=== PATIENT | female | born 1960 | race Caucasian/White ===

== ENCOUNTER → 2019-10-14 | Outpatient (CLI) | payer OTHER ==
--- NOTE | 2019-10-17 13:54 | MM ---
Reason for exam: screening (asymptomatic). Last mammogram was performed 1 year and 3 months ago. History: Patient is postmenopausal. Physical Findings: A clinical breast exam by your physician is recommended on an annual basis and results should be correlated with mammographic findings. MG 3D Screening Mammo W/Cad Bilateral CC and MLO view(s) were taken. Prior study comparison: July 17, 2018, mammogram. May 01, 2017, mammogram. July 29, 2012, bilateral digital screening mammo w/CAD. June 01, 2011, bilateral digital screening mammo w/CAD. There are scattered fibroglandular densities. There is no discrete abnormality. No significant changes when compared with prior studies. ASSESSMENT: Negative, BI-RAD 1 RECOMMENDATION: Routine screening mammogram of both breasts in 1 year.
== END | disposition home or self-care (01) ==
LOC: RADMAMWWP 14:04
PROVIDERS: ATTEND Obstetrics & Gynecology
DX: Z12.31 Encounter for screening mammogram for malignant neoplasm of breast (principal)
CPT/HCPCS: 77063; 77067

== ENCOUNTER → 2020-10-20 | Outpatient (CLI) | payer OTHER ==
--- NOTE | 2020-10-20 12:05 | BD ---
EXAMINATION TYPE: Axial Bone Density DATE OF EXAM: 10/20/2020 COMPARISON: NONE CLINICAL HISTORY: Height: 5FT 1 IN Weight: 166 FRAX RISK QUESTIONS: Alcohol (3 or more units per day): NO Family History (Parent hip fracture): YES Glucocorticoids (More than 3mos): NO (Ex: prednisone, prednisolone, methylprednisolone, dexamethasone, and hydrocortisone). History of Fracture in Adulthood: YES Secondary Osteoporosis: 1. Type 1 Diabetes: NO 2. Hyperthyroidism: NO 3. Menopause before 45: NO 4. Malnutrition: NO 5. Chronic liver disease: NO Rheumatoid Arthritis: NO Current Tobacco Use: YES RISK FACTORS HISTORY OF: Family History of Osteoporosis: YES Active: YES Diet low in dairy products/other sources of calcium: NO Postmenopausal woman: ABLATION SYMPTOMS JUST THIS LAST YEAR Take estrogen and/or progesterone medications: NONE Lost more than 2 inches in height since high school: NO MEDICATIONS: Additional Medications: XANAX, SIMVASTATIN,BABY ASPIRIN Additional History: EXAM MEASUREMENTS: Bone mineral densitometry was performed using the [employer]. Bone mineral density as measured about the Lumbar spine is: ----- L1-L4(G/cm2): 1.005 T Score Values are as follows: ----- L2: -1.5 ----- L3: -1.6 ----- L4: -1.2 ----- L1-L4: -1.5 Bone mineral density has: DECREASED -10.9 % since study of: 2010 Bone mineral density about the R hip (g/cm2): 0.779 Bone mineral density about the L hip (g/cm2): 0.818 T Score values are as follows: -----R Neck: -1.9 -----L Neck: -1.6 -----R Total: -1.6 -----L Total: -1.1 Bone mineral density has: DECREASED -6.8 % since study of: 2010 IMPRESSION: Osteopenia (T Score between -2.5 and -1). There is slightly increased risk of fracture and the patient may be considered for treatment. Re-Screen 2-5 years. NOTE: T-SCORE=SD OF THE YOUNG ADULT MEAN.
--- NOTE | 2020-10-25 09:20 | MM ---
Reason for exam: screening (asymptomatic). Last mammogram was performed 1 year ago. History: Patient is postmenopausal. Physical Findings: A clinical breast exam by your physician is recommended on an annual basis and results should be correlated with mammographic findings. MG 3D Screening Mammo W/Cad Bilateral CC and MLO view(s) were taken. Prior study comparison: October 14, 2019, bilateral MG 3d screening mammo w/cad. July 17, 2018, mammogram. There are scattered fibroglandular densities. There is no discrete abnormality. ASSESSMENT: Negative, BI-RAD 1 RECOMMENDATION: Routine screening mammogram of both breasts in 1 year.
== END | disposition home or self-care (01) ==
LOC: RADMAMWWP 10:13
PROVIDERS: ATTEND Obstetrics & Gynecology
DX: Z12.31 Encounter for screening mammogram for malignant neoplasm of breast (principal); M85.80 Other specified disorders of bone density and structure, unspecified site
CPT/HCPCS: 77063; 77067; 77080

== ENCOUNTER → 2021-03-28 | Outpatient (CLI) | payer OTHER ==
--- NOTE | 2021-03-28 18:39 | ECHOF ---
Referral Reason:R00.2 Palpitations MEASUREMENTS -------- HEIGHT: 154.9 cm WEIGHT: 72.6 kg BP: IVSd: 0.8 cm (0.6 - 1.1) LVIDd: 3.9 cm (3.9 - 5.3) LVPWd: 1.0 cm (0.6 - 1.1) EDV(Teich): 66 ml IVSs: 1.7 cm LVIDs: 1.8 cm LVPWs: 1.4 cm %IVS Thck: 112 % ESV(Teich): 9 ml EF(Teich): 86 % %FS: 55 % SV(Teich): 57 ml RVIDd: 1.9 cm (< 3.3) IVC: 17.37 mm LALs A4C: 4.8 cm LAAs A4C: 13.2 cm LAESV A-L A4C: 31 ml LAESV MOD A4C: 29 ml LALs A2C: 5.1 cm LAAs A2C: 13.4 cm LAESV A-L A2C: 30 ml LAESV MOD A2C: 29 ml LAESV(A-L): 31 ml LAESV Index (A-L): 18.08 ml/m Ao Diam: 2.9 cm (2.0 - 3.7) LA Diam: 2.2 cm (2.7 - 3.8) AV Cusp: 1.9 cm (1.5 - 2.6) EPSS: 0.3 cm MV E Dustin: 0.96 m/s MV DecT: 246 ms MV Dec Will: 3.9 m/s MV A Dustin: 0.90 m/s MV E/A Ratio: 1.07 MV PHT: 71 ms MR Vmax: 3.50 m/s MR maxP.58 mmHg AV Vmax: 1.23 m/s AV maxP.04 mmHg TR Vmax: 1.56 m/s TR maxP.69 mmHg RAP: 5.00 mmHg RVSP: 14.69 mmHg MV EF SLOPE: 79.93 mm/s (70 - 150) MV EXCURSION: 10.41 mm (> 18.000) FINDINGS -------- This was a technically good study. The left ventricular size is normal. Left ventricular wall thickness is normal. Overall left vent ricular systolic function is normal with, an EF between 55 - 60 %. The right ventricle is normal in size. The left atrial size is normal. Normal LA size by volume 22+/-6 ml/m2. The right atrial size is normal. The aortic valve is trileaflet and appears structurally normal. The mitral valve is normal. Mild mitral regurgitation is present. The tricuspid valve appears structurally normal. Mild tricuspid regurgitation present. Right vent ricular systolic pressure is normal at < 35 mmHg. There is no pulmonic regurgitation present. The aortic root size is normal. Normal inferior vena cava with normal inspiratory collapse consistent with estimated right atrial pre ssure of 5 mmHg. There is no pericardial effusion. CONCLUSIONS -------- 1. The left ventricular size is normal. 2. Left ventricular wall thickness is normal. 3. Overall left ventricular systolic function is normal with, an EF between 55 - 60 %. 4. Mild mitral regurgitation is present. 5. Mild tricuspid regurgitation present. 6. There is no pericardial effusion. FILM LABORATORY TECHNICIAN: Antonieta Rowley RDCS
== END | disposition home or self-care (01) ==
LOC: RADECHMAIN 12:59
PROVIDERS: ATTEND Internal Medicine
DX: I08.8 Other rheumatic multiple valve diseases (principal)
CPT/HCPCS: 93306

== ENCOUNTER → 2021-08-16 | Outpatient (CLI) | payer OTHER ==
--- NOTE | 2021-08-16 12:35 | XR ---
EXAMINATION TYPE: XR chest 2V DATE OF EXAM: 08/16/2021 COMPARISON: NONE TECHNIQUE: PA and lateral views submitted. HISTORY: Post covid. Heart palpitations FINDINGS: The lungs are clear and there is no pneumothorax, pleural effusion, or focal pneumonia. Mildly coar sened central interstitium. Biapical pleural thickening. Heart size normal. Mild hyperinflation corre late for asthma or COPD. Degenerative changes of the spine. Surgical clips in the abdomen. IMPRESSION: 1. Correlate for bronchitis or mild interstitial pneumonitis.
--- NOTE | 2021-08-16 12:36 | XR ---
EXAM TYPE: LUMBAR SPINE X RAY SERIES COMPARISON: NONE HISTORY: Pain TECHNIQUE: 4 views are submitted. FINDINGS: Alignment is anatomic. The pedicles are intact. The transverse processes are intact. There is grad e 1 anterolisthesis L5 on S1. There is degenerative disc disease L3-4, L4-5 and severe changes L5-S1. Severe facet arthropathy L4-5 and L5-S1. IMPRESSION: 1. Multilevel degenerative disc disease with severe facet arthropathy lower lumbar spine with resulti ng in grade 1 anterolisthesis L5 on S1. Follow-up MRI recommended.
== END | disposition home or self-care (01) ==
LOC: RADXRMAIN 11:47
PROVIDERS: ATTEND Internal Medicine
DX: J98.4 Other disorders of lung (principal); Z86.16 Personal history of COVID-19
CPT/HCPCS: 71046; 72100

== ENCOUNTER → 2021-09-09 | Outpatient (CLI) | payer OTHER ==
--- NOTE | 2021-09-09 11:39 | MR ---
EXAMINATION TYPE: MR cspine/lspine wo con DATE OF EXAM: 09/09/2021 COMPARISON: The lumbar spine 08/16/2021 HISTORY: Neck and low back pain TECHNIQUE: Multiplanar, multisequence imaging of the cervical and lumbar spine is performed without I V contrast. FINDINGS: Cervical spine mri: There is some slight reversal the normal cervical lordosis which can be seen in m uscle spasm. Cervical vertebral bodies show preserved height, minimal anterolisthesis grade 1 C3-4, r etrolisthesis grade 1 C5-6 and C6-7. Loss of disc height and signal is present C4-5, C5-6 and C6-7, t here is associated spondylosis, endplate discogenic marrow signal change. C2-3: There is some right-sided foraminal encroachment due to uncovertebral joint hypertrophy, no dis c herniation or significant spinal stenosis C3-4: Minimal posterior disc bulge causes slight anterior mass effect on the thecal sac. Foraminal en croachment due to uncovertebral joint hypertrophy is greater on the right causing some foraminal encr oachment. No significant spinal stenosis. C4-5: Posterior extension endplate disc complex causes anterior mass effect on the thecal sac, only m ild spinal stenosis. There is bilateral foraminal encroachment due to uncovertebral joint hypertrophy , there may be some associated facet arthropathy. C5-6: Posterior disc bulge causes slight anterior mass effect on the thecal sac. There is bilateral f oraminal encroachment left greater than right. Only mild spinal stenosis. There is some facet arthrop athy change present. C6-7: Posterior extension endplate disc complex causes minimal anterior mass effect on the thecal sac . No significant spinal stenosis or foraminal encroachment. C7-T1: Within normal limits. Cervical cord signal is maintained. IMPRESSION: Degenerative disc disease, multilevel foraminal encroachment, there is some associated fa cet arthropathy. Lumbar MRI: There is anterolisthesis grade 1 L5-S1, bilateral spondylolysis at L5 is noted. Lumbar vertebral bodi es show preserved height and alignment, there is multilevel spondylosis with endplate discogenic kathryn ow signal change, loss of disc height signal is greatest at L5-S1 with associated vacuum phenomenon, no significant spinal stenosis. The conus medullaris is normal in position and signal. The bone kathryn ow signal intensity is within normal limits. Probable cortical cyst associated with the right kidney partially visualized measuring 2.6 cm, possible parapelvic cyst on the left or extrarenal pelvis note d L5-S1 shows bilateral foraminal encroachment contributed by the listhesis, there is no evident disc h erniation. Facet arthropathy changes present. L4-5: Posterior disc bulge causes slight anterior mass effect on the thecal sac. Facet arthropathy wi th hypertrophy ligamentum flavum causes some posterior lateral mass effect on the thecal sac. There m ay be some encroachment on the lateral recess greater on the left. No significant foraminal encroachm ent. L3-4: Minimal posterior disc bulge causes only slight anterior mass effect on the thecal sac. No sign ificant foraminal encroachment. L2-3: There is some facet arthropathy with hypertrophy ligamentum flavum causing some posterior later al mass effect on the thecal sac. No significant foraminal encroachment. Minimal disc bulge causes sl ight anterior mass effect on the thecal sac. L1-2: Unremarkable IMPRESSION: Degenerative disc disease, spondylolysis at L5-S1 with spondylolisthesis, multilevel face t arthropathy.
== END | disposition home or self-care (01) ==
LOC: RADMRIMAIN 09:27
PROVIDERS: ATTEND Internal Medicine
DX: M51.36 Other intervertebral disc degeneration, lumbar region (principal); M50.322 Other cervical disc degeneration at C5-C6 level; M47.812 Spondylosis without myelopathy or radiculopathy, cervical region; M43.07 Spondylolysis, lumbosacral region
CPT/HCPCS: 72141; 72148

== ENCOUNTER → 2021-10-21 | Outpatient (CLI) | payer BC ==
--- NOTE | 2021-10-25 09:14 | MM ---
Reason for exam: screening (asymptomatic). Last mammogram was performed 1 year ago. History: Patient is postmenopausal. Physical Findings: A clinical breast exam by your physician is recommended on an annual basis and results should be correlated with mammographic findings. MG 3D Screening Mammo W/Cad Bilateral CC and MLO view(s) were taken. Prior study comparison: October 20, 2020, bilateral MG 3d screening mammo w/cad. October 14, 2019, bilateral MG 3d screening mammo w/cad. There are scattered fibroglandular densities. No significant changes when compared with prior studies. ASSESSMENT: Negative, BI-RAD 1 RECOMMENDATION: Routine screening mammogram of both breasts in 1 year.
== END | disposition home or self-care (01) ==
LOC: RADMAMWWP 15:32
PROVIDERS: ATTEND Obstetrics & Gynecology
DX: Z12.31 Encounter for screening mammogram for malignant neoplasm of breast (principal); Z78.0 Asymptomatic menopausal state
CPT/HCPCS: 77063; 77067

== ENCOUNTER → 2025-02-03 | Outpatient (CLI) | payer BC ==
--- NOTE | 2025-02-03 20:42 | FL ---
EXAMINATION TYPE: FL barium swallow DATE OF EXAM: 02/03/2025 3:28 PM COMPARISON: . Chest radiograph from 08/16/2021 CLINICAL INDICATION:Female, 64 years old with history of K44.9 DIAPHRAGMATIC HERNIA WITHOUT OBSTRUCTI ON OR; [facility], TECHNIQUE: The procedure was explained and patient history elicited. All patient questions were ans wered prior to start of procedure. Multiple spot fluoroscopic images of the esophagus were obtained a fter the oral ingestion of effervescent crystals and liquid barium as the contrast agent. DAP: NOT REPORTED [id number] FINDINGS: The esophagus demonstrates normal primary and secondary peristalsis. Tertiary contractions are seen w ith delayed emptying of the esophageal contents. Small hiatal hernia present. The esophageal mucosa i s smooth without evidence of focal stricture, ulceration, or abnormal outpouching. There was gastroes ophageal reflux disease identified within the patient was transitioned from upright to prone. IMPRESSION: 1. Esophageal dysmotility. 2. Small hiatal hernia. 3. Gastroesophageal reflux. [facility], , 02/03/2025 8:39 PM
== END | disposition home or self-care (01) ==
LOC: RADFLMAIN 14:40
PROVIDERS: ATTEND Family Medicine
DX: K44.9 Diaphragmatic hernia without obstruction or gangrene (principal); K22.4 Dyskinesia of esophagus; K21.9 Gastro-esophageal reflux disease without esophagitis
CPT/HCPCS: 74220

== ENCOUNTER 2025-02-26 09:48 | Day surgery (SDC) | payer BC ==
[2025-02-25 11:53] VITALS: BMI 29.2
--- NOTE | 2025-02-26 07:38 | P.GSHP ---
History of Present Illness H&P Date: 02/26/25 CHIEF COMPLAINT: GERD and dysphagia HISTORY OF PRESENT ILLNESS: The patient is a 64-year-old female who presents reports gastroesophageal reflux disease and dysphagia. Upper endoscopy was offered for further evaluation and management. PAST MEDICAL HISTORY: Please see list. PAST SURGICAL HISTORY: Please see list. MEDICATIONS: Please see list. ALLERGIES: Please see list. SOCIAL HISTORY: No illicit drug use FAMILY HISTORY: No reports of Crohn disease or ulcerative colitis. REVIEW OF ORGAN SYSTEMS: CONSTITUTIONAL: No reports of fevers or chills. GI: Denies any blood in stools or constipation. PHYSICAL EXAM: VITAL SIGNS: Stable GENERAL: Well-developed and pleasant in no acute distress. HEENT: No scleral icterus. Extraocular movements grossly intact. Moist buccal mucosa. NECK: Supple without lymphadenopathy. CHEST: Unlabored respirations. Equal bilateral excursions. CARDIOVASCULAR: Regular rate and rhythm. Distal 2+ pulses. ABDOMEN: Soft, nondistended. MUSCULOSKELETAL: No clubbing, cyanosis, or edema. ASSESSMENT: 1. Gastroesophageal reflux disease 2. Dysphagia PLAN: 1. Recommend proceeding with an upper endoscopy Past Medical History Past Medical History: CVA/TIA, Hyperlipidemia, Osteoarthritis (OA) Additional Past Medical History / Comment(s): SEASONAL ALLERGIES. POLYARTHRITIS. OSTEOPOROSIS History of Any Multi-Drug Resistant Organisms: None Reported Past Surgical History: Cholecystectomy, Hernia Repair Additional Past Surgical History / Comment(s): BILAT FEET BRADSHAW NEUROMA SX. COLONOSCOPY. BILAT EYELID LIFT Past Anesthesia/Blood Transfusion Reactions: No Reported Reaction Smoking Status: Current every day smoker - Past Family History Father Family Medical History: Deep Vein Thrombosis (DVT) Mother Family Medical History: Cancer Additional Family Medical History / Comment(s): SKIN Medications and Allergies Home Medications Medication Instructions Recorded Confirmed Type ALPRAZolam [Xanax] 0.25 mg PO DAILY PRN 02/25/25 02/25/25 History Aspirin EC [Ecotrin Low Dose] 81 mg PO HS 02/25/25 02/25/25 History DULoxetine HCL [Cymbalta] 60 mg PO DAILY 02/25/25 02/25/25 History Fluticasone Nasal [place] [Flonase 2 spray EA NOSTRIL DAILY PRN 02/25/25 02/25/25 History Nasal [place]] Pantoprazole [Protonix] 40 mg PO BID 02/25/25 02/25/25 History Simvastatin 10 mg PO HS 02/25/25 02/25/25 History Allergies Allergy/AdvReac Type Severity Reaction Status Date / Time Penicillins Allergy Rash/Hives Verified 02/25/25 11:45
[2025-02-26 10:19] VITALS: RESP 16; TEMP 96.8
[2025-02-26] MEDS: IV FLUID CONTINUATION 1,000 ML IV ONE (10:28)
[2025-02-26] MEDS: LACTATED RINGERS 1,000 ML IV SCH (10:29)
[2025-02-26] MEDS ORDERED: LIDOCAINE 1% INJ 10MG/ML (20 ML MDV) ONE (10:54)
[2025-02-26] MEDS ORDERED: PROPOFOL 10 MG/ML 20 ML VIAL IV ONE (10:54)
[2025-02-26 11:43] VITALS: BP 143/87; PULSE 67
--- NOTE | 2025-02-26 14:43 | P.PCN ---
Date of Procedure: 02/26/25 Description of Procedure: PREOPERATIVE DIAGNOSIS: Gastroesophageal reflux disease Esophageal ulcers Dysphagia Tobacco abuse disorder POSTOPERATIVE DIAGNOSIS: Upper esophageal stenosis Diaphragmatic hiatal hernia Gastroesophageal reflux disease OPERATION: Esophagogastroduodenoscopy with rigid dilator over the guidewire 57 Fr with dilation Esophagogastroduodenoscopy with cold forceps biopsies stomach/antrum, esophagus, duodenum SURGEON: Angela Munoz MD ANESTHESIA: MAC. INDICATIONS: The patient is a 64-year-old female who presents with a history of gastroesophageal reflux disease including dysphagia. Benefits and risks of the procedure were described. Informed consent was obtained. DESCRIPTION: The patient was brought into the endoscopy suite and laid in the left lateral decubitus position. After a timeout was confirmed, the procedure was initiated. An Olympus gastroscope was passed into the posterior oropharynx where an upper esophageal stenosis was identified. The scope was passed down to the distal esophagus. To address the upper esophageal stenosis, rigid dilator over guide wire was selected. Next using an [place] rigid dilator, a guidewire was placed through the gastroscope. Next the scope was withdrawn. A 57-Romanian rigid [place] dilator was passed carefully along the posterior oropharynx to 45 cm and left in place for 2-3 minutes stretch. The dilator was withdrawn including the guidewire. The scope was reentered along the posterior oropharynx with no findings of full- thickness tear of the upper esophageal sphincter. Additional findings below. Within the stomach, gastritis was identified along the body of the stomach with cold forceps biopsies obtained. The lower esophageal valve was evaluated with Hill grade 2 lower esophageal valve. LA grade B erosive esophagitis was identified. No full-thickness injury was encountered. The GI tract was desufflated. The patient tolerated the procedure well. FINDINGS: Upper esophageal stenosis dilated 57-Romanian rigid dilator Diaphragmatic hiatus at 30 cm from the incisors Squamocolumnar junction 35 cm from the incisors. Diaphragmatic hiatal hernia, 5 cm Acute gastritis identified with biopsies obtained Duodenum with duodenitis. Biopsies obtained LA grade B erosive esophagitis Hill grade 4 lower esophageal valve. RECOMMENDATIONS: Tobacco cessation counseling described Continue pantoprazole 40 mg daily Plan - Discharge Summary Discharge Rx Participant: No New Discharge Prescriptions: Continue Fluticasone Nasal [place] [Flonase Nasal [place]] 2 spray EA NOSTRIL DAILY PRN PRN Reason: ALLERGIES Pantoprazole [Protonix] 40 mg PO BID Aspirin EC [Ecotrin Low Dose] 81 mg PO HS ALPRAZolam [Xanax] 0.25 mg PO DAILY PRN PRN Reason: Anxiety Simvastatin 10 mg PO HS DULoxetine HCL [Cymbalta] 60 mg PO DAILY Discharge Medication List ALPRAZolam [Xanax] 0.25 mg PO DAILY PRN 02/25/25 [History] Aspirin EC [Ecotrin Low Dose] 81 mg PO HS 02/25/25 [History] DULoxetine HCL [Cymbalta] 60 mg PO DAILY 02/25/25 [History] Fluticasone Nasal [place] [Flonase Nasal [place]] 2 spray EA NOSTRIL DAILY PRN 02/25/25 [History] Pantoprazole [Protonix] 40 mg PO BID 02/25/25 [History] Simvastatin 10 mg PO HS 02/25/25 [History] Follow up Appointment(s)/Referral(s): Angela Munoz MD [STAFF PHYSICIAN] - 03/24/25 3:00 pm Patient Instructions/Handouts: *Surgery [facility] - (Anesthesia) Discharge Instructions Outpatient Surgery, Hiatal Hernia (DC), Upper Endoscopy (DC) Discharge Disposition: HOME SELF-CARE
== END 2025-02-26 12:32 | disposition home or self-care (01) ==
LOC: ORWHC2ENDO 09:48
PROVIDERS: ATTEND Surgery Plastic and Reconstructive Surgery
DX: K29.80 Duodenitis without bleeding (principal); K29.50 Unspecified chronic gastritis without bleeding; K22.2 Esophageal obstruction; K22.10 Ulcer of esophagus without bleeding; K21.9 Gastro-esophageal reflux disease without esophagitis; K44.9 Diaphragmatic hernia without obstruction or gangrene; F17.200 Nicotine dependence, unspecified, uncomplicated; Z86.73 Personal history of transient ischemic attack (TIA), and cerebral infarction without residual deficits; E78.5 Hyperlipidemia, unspecified; Z88.0 Allergy status to penicillin; Z79.82 Long term (current) use of aspirin
CPT/HCPCS: 43239; 43248; J2003; J2704; 88305